=== PATIENT | female | born 1960 ===

== ENCOUNTER 2022-11-12 05:38 | Day surgery (SDC) | payer OTHER ==
[~2022-11-12 05:38] MED LIST: AMLODIP PO; COZAAR100 MG PO; FISH OIL PO; RISEDRONATE SOD35 MG PO; VITAMIN D3 PO
== END 2022-11-12 11:00 | disposition home or self-care (01) ==
LOC: CIR.AMB 05:38
PROVIDERS: ATTEND Surgery Surgery of the Hand
DX: M67.844 Other specified disorders of tendon, left hand (principal); Z20.822 Contact with and (suspected) exposure to COVID-19; I10 Essential (primary) hypertension